=== PATIENT | male | born 1960 | race Caucasian/White ===

== ENCOUNTER 2016-08-30 07:00 | Day surgery (SDC) | payer OTHER ==
[~2016-08-30] VITALS: Ht 180.3 cm; Wt 137.4 kg
[~2016-08-30 07:00] MED LIST: Lactated Ringer's 1,000 ML IV ONE; MULT-1018 PO; OMEG-38 PO; SODI354S PO
[2016-08-30] MEDS ORDERED: Lidocaine PF 1% 30 mL Inj ONE (07:01)
[2016-08-30] MEDS ORDERED: Propofol 10,000 mCg/mL 20 mL Inj ONE (07:01)
[2016-08-30 07:36] VITALS: BP 127/78; PULSE 88; RESP 17; O2SAT 98
--- NOTE | 2016-08-30 07:52 | PCM.HPANE ---
Patient Data Date of Service: Aug 30, 2016 Surgeon Admitting Provider: Attending Provider:Aj Dinero MD Primary Care Physician:Dick Teresa MD Other Provider:Stevie Reyes Anesthesia Reason for Visit Colon Polyp Ht/WT & BMI Height (Feet): 5 Height (Inches): 11 Weight (Kilograms): 137.44 Body Mass Index 42.00 Allergies Coded Allergies: No Known Allergies (Verified Allergy, Unknown, 01/24/08) Past Anesthesia History Anesthesia History: Denies:: Anesthesia Reactions, Malignant Hyperthermia Diabetes History Hx Diabetes?: No MRSA MRSA: No Medications Hypertension Medication: No Home Meds Incl Beta Berna: No Reported Medications Sodium,Potassium,&Mag Sulfates (Suprep Bowel Prep Kit)354 Ml Soln.[id number] Ml PO 08/22/16 Multivitamin (Multi Vitamin Daily)1 Each Tablet1 Each PO DAILY 30 Days Ref 0 08/22/16 [place]-3/Dha/Epa/Fish Oil (Fish Oil 1,000 mg Softgel)1 Each Capsule1 Each PO DAILY 08/22/16 History History of ENT Problems?: No HEENT History: Denies:: Hearing Problem Hx of Heart Problems?: No Hx of Respiratory Problem?: Yes Respiratory History: Positive for:: Use of C-PAP Machine Hx Neurologic Problems?: No Hx of GI Problems?: Yes Gastrointestinal History: Positive for:: Rectal Bleeding Denies:: Cirrhosis Gall Bladder Disease Liver Disease Hx of Problems?: No Genitourinary History: Denies:: HX of Hemodialysis Kidney Stones Urinary Tract Infection Male Hx: Denies:: Scrotal Mass Testicular Surgery Hx Musculoskeletal Problems?: No Hx of Psycho/Social Problems?: No Hx Surgeries?: Yes (HERNIA REPAIR) Hx Any Other Health Problems?: No Other History: Positive for:: Hospitalization (HERNIA SURGERY) Denies:: Cancer Endocrine Disease Thyroid Disease History Blood Transfusions: Denies:: Blood Transfuse Reaction Blood Transfusions Hx Diabetes: No Hx Alcohol Use: Yes (occasionly)Hx Substance Use: No Stop/Bang Treated for Sleep Apnea?: Yes Do You Have a CPAP Machine?: Yes HANY Risk Assessment: High Risk, =/>3 Yes Risk Assessment Category Category 1A: Patient has history of documented sleep apnea, and HAS NOT received any narcotic, sedative or anesthesia administration during this stay. Category 1B: Patient has history of documented sleep apnea, and HAS received any narcotic , sedative or anesthesia administration during this stay Category 2: Patient has SUSPECTED Obstructive Sleep Apnea, and HAS received any narcotic , sedative or anesthesia administration during this stay. Category 3: Patient has SUSPECTED Obstructive Sleep Apnea and HAS NOT received narcotic, sedative or anesthesia administration during this stay. Category 4: Outpatient in Procedural Areas with known sleep apnea or who screen positive for High Risk via the STOP/BANG questionnaire. Exam Exam Vital Signs Vital Signs Date Time Temp Pulse Resp B/P Pulse Ox O2 Delivery O2 Flow Rate FiO2 08/30/16 07:36 36.8 88 17 127/78 98 Room Air General Appearance: Alert, Oriented X3, Cooperative HEENT/AIRWAY: MP 3, Neck Movement, Mouth Opening (Wide) Lungs: Clear to Auscultation, Normal Air Movement Heart: Regular Rate/Rhythm, Normal S1, Normal S2 Plan Impression Patient chart reviewed, patient interviewed and anesthestic plan with risks, benefits, and alternatives discussed, and informed consent obtained. NPO Status: > 2 hours clears ASA Physical Status: ASA3 Severe Disease (morbid obesity) Anesthetic Plan: MAC Bene/Risks/Altern/Consents: Yes HP Complete Prior to Induction: Yes Deric Rosales MD Aug 30, 2016 07:52
[2016-08-30] MEDS ORDERED: MetoCLOpramide 5 mg/mL 2 mL Inj IVPUSH PRN (07:55)
[2016-08-30] MEDS ORDERED: Ondansetron 2 mg/mL 2 mL Inj IVPUSH PRN (07:55)
[2016-08-30] MEDS: Lactated Ringer's 1,000 ML IV SCH ×2 (08:04→09:07)
[2016-08-30 08:48] VITALS: BP 111/62; PULSE 70; RESP 14; O2SAT 95
--- NOTE | 2016-08-30 09:01 | PCM.ANEP1 ---
Post Anesthesia Phase 1 PACU Phase 1 Assessment Date of Service: Aug 30, 2016 Vital Signs Vital Signs Date Time Temp Pulse Resp B/P Pulse Ox O2 Delivery O2 Flow Rate FiO2 08/30/16 08:48 70 14 111/62 95 Room Air 08/30/16 07:36 36.8 88 17 127/78 98 Room Air Anesthetic Administered: MAC Level of Alertness: Awake, talking GARCIA's with Equal Strength: Yes Pain: No Nausea or Vomiting: No Oxygen Delivery: Nasal Cannula Lungs: Normal Air Movement Deric Rosales MD Aug 30, 2016 09:01
[2016-08-30 09:04] VITALS: BP 121/78; PULSE 69; RESP 14; O2SAT 99
[2016-08-30 09:06] VITALS: BP 105/70; PULSE 63; RESP 14; O2SAT 98
--- NOTE | 2016-08-30 09:06 | PCM.ANEP2 ---
Post Anesthesia Evaluation ASA/CMS Post Anesthesia Date of Service: Aug 30, 2016 VS in Patient's Normal Range?: Yes Resp Stable; Airway Patent?: Yes CV Function & Hydration Stable: Yes Mental Status Recovered?: Yes Pain control Satisfactory?: Yes N/V Control Satisfactory?: Yes Deric Rosales MD Aug 30, 2016 09:06
--- NOTE | 2016-08-30 12:27 | ENDO ---
[address] [address] ENDOSCOPY PROCEDURE PATIENT: NOAH MONTANO : 1960 MR#: [id number] ADMIT: 08/30/2016 JOB ID: [id number] DATE: 08/30/2016 PROCEDURE: A colonoscopy with hot snare polypectomy, cold snare polypectomy and cold forceps polypectomy. INDICATIONS: A 55-year-old male who reports for colon cancer screening. He has a personal history of colon polyps and a family history of colon cancer. He additionally has had some intermittent symptoms of red blood per rectum. EQUIPMENT: PCF H 190 DL. SEDATION: Monitored anesthesia as provided by Dr. Deric Rosales. COMPLICATIONS: None identified. BOWEL PREPARATION: Fair, adequate examination. PROCEDURAL INFORMATION: After the risks and benefits were explained, written and verbal informed consent was obtained. The patient was brought into the endoscopy suite and placed into the left lateral decubitus position. Sedation was achieved using the above-stated medications with the addition of oxygen via nasal cannula. A digital rectal examination was accomplished. [id number] internal hemorrhoids were noted. The scope was introduced into the rectum and advanced under direct visualization to the cecum as identified by the appendiceal orifice and ileocecal valve. The scope was slowly withdrawn to carefully examine the mucosa for any defects or lesions. Multiple direct views were made through the dentate line. Retroflexed views were additionally accomplished. The colon was decompressed. The scope removed from the patient who tolerated the procedure well. FINDINGS: Extensive diverticulosis was seen in the left colon. The patient had a lengthy colon and in order to achieve cecal intubation, all of the scope was utilized with a change in patient position, and application of pressure. Throughout the colon, there were 10 polyps seen and removed, three of these by way of cold forceps, three of these by way of cold snare and four [address] of hot snare. In retroflexed views, the patient had evidence of moderate internal hemorrhoids with hypertrophied anal papillae. Procedure time was 37 minutes of actual scope time. Because of the challenging navigation and number of polyps, 22 modifier was requested. ENDOSCOPIC DIAGNOSES: 1. Diverticulosis. 2. Hemorrhoids. 3. Multiple polyps. RECOMMENDATIONS: 1. Await histopathology. 2. Depending on the number of polyps returned with adenomatous features, repeat colonoscopy will be suggested for either one or three years (one year if all of these are adenomatous).
--- NOTE | 2016-08-31 13:51 | PATH ---
SURGICAL PATHOLOGY Attending Physician:Lizzette Cristina CASE STATUS: Signed Out PATIENT NAME: NOAH MONTANO PID: [id number] : 1960 DATE COLLECTED:08/30/2016 19:51 SPECIMEN: Colon, Biopsy CLINICAL HISTORY: COLON POLYPS FINAL DIAGNOSIS: Colon Polyps: Tubular adenoma involving two biopsy fragments. Hyperplastic polyps involving multiple biopsy fragments. ICD10 D12.6 GROSS DESCRIPTION: The specimen is received in one formalin filled container labeled with the patient's name, sublabeled "colon polyps" and consists of multiple portions of tissue which aggregate to 0.7 x 0.7 x 0.5 CM. The specimen is entirely submitted in one cassette. 08/30/2016 [facility] ICD-9 CODES: CPT CODES: 1: 72309 Electronically Signed Out Aj Conte MD [facility] Pathology [facility] [place] [address] Technical component performed at [facility], [address] [place] [address] Ave[address], [place], [address]
== END 2016-08-30 23:59 | disposition home or self-care (01) ==
LOC: END 07:00
PROVIDERS: ATTEND Internal Medicine Gastroenterology
DX: Z12.11 Encounter for screening for malignant neoplasm of colon (principal); Z86.010 Personal history of colon polyps; Z80.0 Family history of malignant neoplasm of digestive organs; D12.6 Benign neoplasm of colon, unspecified; K57.30 Diverticulosis of large intestine without perforation or abscess without bleeding; K64.8 Other hemorrhoids; G47.33 Obstructive sleep apnea (adult) (pediatric); E66.9 Obesity, unspecified; Z68.41 Body mass index [BMI] 40.0-44.9, adult
CPT/HCPCS: 45380; 45385; J7120